=== PATIENT | male | born 1950 | race Caucasian/White ===

== ENCOUNTER → 2017-09-18 | Outpatient (CLI) | payer OTHER | LOC: M.ULTRA 11:53 | DX: I70.8 Atherosclerosis of other arteries (principal) ==

== ENCOUNTER → 2018-11-27 | Outpatient (CLI) | payer OTHER ==
[2018-11-27 12:55] LABS: CREATININE 1.9 mg/dL (0.6-1.3)
== END ==
LOC: M.CT 10-31 10:03 → M.NUC 11-13 13:00 → M.CT 11-13 15:00 → M.NUC 11-25 13:00 → M.CT 11-26 13:00 → M.LAB 12:25 → M.NUC 13:00
PROVIDERS: Family Medicine
DX: K80.20 Calculus of gallbladder without cholecystitis without obstruction (principal); K86.89 Other specified diseases of pancreas; R14.0 Abdominal distension (gaseous); I48.91 Unspecified atrial fibrillation; E11.22 Type 2 diabetes mellitus with diabetic chronic kidney disease; I50.9 Heart failure, unspecified; N18.3 Chronic kidney disease, stage 3 (moderate); E78.5 Hyperlipidemia, unspecified; Z79.899 Other long term (current) drug therapy; Z95.810 Presence of automatic (implantable) cardiac defibrillator; Z95.5 Presence of coronary angioplasty implant and graft; Z87.891 Personal history of nicotine dependence

== ENCOUNTER 2021-02-06 11:05 | Emergency (ER) | payer OTHER | END 2021-02-06 11:53 | disposition left against medical advice (07) | LOC: M.ERS 11:05 | DX: Z20.822 Contact with and (suspected) exposure to COVID-19 (principal); Z53.21 Procedure and treatment not carried out due to patient leaving prior to being seen by health care provider ==